=== PATIENT | female | born 2005 | race Caucasian/White ===

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

== ENCOUNTER 2024-06-26 14:50 | Emergency (ER) | payer SELFPAY ==
[2024-06-26 15:05] VITALS: BMI 22.6
[2024-06-26] MEDS ORDERED: ACETAMINOPHEN INJECTION 100 ML ONE (16:30)
[2024-06-26] MEDS ORDERED: FAMOTIDINE 20 MG/50 ML IVPB 20 MG/50 ML MG IVPB ONE (16:31)
[2024-06-26 16:38] LABS: INR 1.07 (0.83-1.09); PROTHROMBIN TIME (PATIENT) 12.1 SEC (9.7-13.0)
[2024-06-26] MEDS: SODIUM CHLORIDE 1,000 ML IV STA (16:38)
[2024-06-26] MEDS: ACETAMINOPHEN 1000 MG/100 ML BAG IVPB ONE (16:38)
[2024-06-26] MEDS: FAMOTIDINE 20 MG/50 ML IVPB 20 MG/50 ML MG IVPB ONE (16:38)
[2024-06-26 16:39] LABS: BASO % 0.4 % (0-2.0); HEMATOCRIT 43.8 % (32.4-45.2); HEMOGLOBIN 14.5 GM/dL (10.7-15.3); LYMPH % 29.6 % (8-40); MCH 29.9 pg (25.7-33.7); MCHC 33.1 g/dl (32.0-36.0); MEAN CELL VOLUME 90.2 fl (80-96); MEAN PLT VOLUME 8.9 fl (7.5-11.1); MONO % 7.9 % (3.8-10.2); NEUT % 61.1 % (42.8-82.8); PLATELET COUNT 316 10^3/uL (134-434); RBC 4.86 M/mm3 (3.60-5.2); RDW 12.9 % (11.6-15.6); WHITE BLOOD COUNT 9.1 K/mm3 (4.0-10.0)
[2024-06-26 16:41] LABS: ACTIVATED PTT 31.9 SECONDS (25.2-36.5)
[2024-06-26 16:47] LABS: POTASSIUM 4.1 mmol/L (3.5-5.1)
[2024-06-26 16:50] LABS: ALBUMIN 4.1 g/dl (3.4-5.0); BLOOD UREA NITROGEN 10.2 mg/dL (7-18); CALCIUM 9.2 mg/dL (8.5-10.1)
[2024-06-26 16:53] LABS: CREATININE 0.6 mg/dL (0.55-1.3)
[2024-06-26 16:55] LABS: BILIRUBIN,TOTAL 0.6 mg/dL (0.2-1); TOT PROT 7.8 g/dl (6.4-8.2)
[2024-06-26 20:46] VITALS: BP 122/68; PULSE 78; RESP 19; TEMP 97.8
== END 2024-06-26 20:47 | disposition home or self-care (01) ==
LOC: JER 14:50
PROC: 3E033GC Introduction of Other Therapeutic Substance into Peripheral Vein, Percutaneous Approach (ICD-10-PCS; principal; 2024-06-26)
PROC: 3E033NZ Introduction of Analgesics, Hypnotics, Sedatives into Peripheral Vein, Percutaneous Approach (ICD-10-PCS; 2024-06-26)
PROC: 3E0337Z Introduction of Electrolytic and Water Balance Substance into Peripheral Vein, Percutaneous Approach (ICD-10-PCS; 2024-06-26)
DX: R07.89 Other chest pain (principal); R06.02 Shortness of breath; Z20.822 Contact with and (suspected) exposure to COVID-19
CPT/HCPCS: 0241U-QW; 36415; 71046-TC-FY; 71275-TC; 80053; 84484; 84703; 85025; 85379; 85610; 85730; 93005; 93010; 99285-25; J0131

== ENCOUNTER 2024-06-28 12:09 | Emergency (ER) | payer SELFPAY ==
[2024-06-28 12:20] VITALS: BMI 22.6
[2024-06-28] MEDS ORDERED: DEXAMETHASONE SOD PHOSPHATE 10 MG/1 ML VIAL ONE (13:12)
[2024-06-28] MEDS ORDERED: FAMOTIDINE 20 MG/50 ML IVPB 20 MG/50 ML MG IVPB ONE (13:13)
[2024-06-28] MEDS: SODIUM CHLORIDE 0.9% 500 ML INFUS.BAG IV ONE (13:36)
[2024-06-28] MEDS: DEXAMETHASONE SOD PHOSPHATE 10 MG/1 ML VIAL IVPUSH ONE (13:36)
[2024-06-28] MEDS: FAMOTIDINE 20 MG/50 ML IVPB 20 MG/50 ML MG IVPB ONE (13:36)
[2024-06-28 13:54] LABS: EPI CELLS 11 /uL (0-25.1); HYALINE CASTS 0 /uL (0-3.1); URINE APPEARANCE CLEAR; URINE BACTERIA 222 /uL (0-1359); URINE BILIRUBIN NEGATIVE (NEGATIVE); URINE COLOR YELLOW; URINE GLUCOSE (UA) NEGATIVE (NEGATIVE); URINE KETONE NEGATIVE (NEGATIVE); URINE LEUK ESTERASE NEGATIVE (NEGATIVE); URINE NITRITE NEGATIVE (NEGATIVE); URINE PROTEIN NEGATIVE (NEGATIVE); URINE RBC 15 /uL (0-23.9); URINE UROBILINOGEN 0.2 mg/dL (0.2-1.0); URINE WBC 6 /uL (0-25.8)
[2024-06-28 15:06] VITALS: BP 115/78; PULSE 89; RESP 19; TEMP 97.9
== END 2024-06-28 15:06 | disposition home or self-care (01) ==
LOC: JER 12:09
PROC: 3E033GC Introduction of Other Therapeutic Substance into Peripheral Vein, Percutaneous Approach (ICD-10-PCS; principal; 2024-06-28)
PROC: 3E033GC Introduction of Other Therapeutic Substance into Peripheral Vein, Percutaneous Approach (ICD-10-PCS; 2024-06-28)
PROC: 3E033GC Introduction of Other Therapeutic Substance into Peripheral Vein, Percutaneous Approach (ICD-10-PCS; 2024-06-28)
DX: L50.9 Urticaria, unspecified (principal)
CPT/HCPCS: 81003; 87086; 93005; 93010; 99284-25; J1100